=== PATIENT | female | born 1995 | race Caucasian/White ===

== ENCOUNTER 2016-11-22 22:14 | Inpatient (IN) | payer MEDICAID ==
[~2016-11-22] VITALS: Ht 160 cm; Wt 68.0 kg
== END 2016-11-23 07:15 | disposition short-term general hospital (02) | DRG 782 ==
LOC: LDROP 22:14 → LDRIP 23:08
PROVIDERS: ADMIT Family Medicine
PROC: 3E0233Z Introduction of Anti-inflammatory into Muscle, Percutaneous Approach (ICD-10-PCS; principal; 2016-11-23)
DX: O42.913 Preterm premature rupture of membranes, unspecified as to length of time between rupture and onset of labor, third trimester (principal); Z3A.35 35 weeks gestation of pregnancy
CPT/HCPCS: J0702; J2540